=== PATIENT | female | born 1995 | race American Indian/Alaskan Native ===

== ENCOUNTER 2018-08-09 17:43 | Emergency (ER) | payer OTHER ==
[2018-08-09] MEDS ORDERED: MOTRIN PO ONE (17:54)
[2018-08-09] MEDS ORDERED: DECADRON IM ONE (17:54)
[2018-08-09] MEDS ORDERED: DECADRON ONE (17:58)
--- NOTE | 2018-08-09 18:06 | Event Note ---
ED Screening Note Date of service: 08/09/18 Time: 17:52 ED Screening Note: 23 y/o female comes in for sore throat times 2 days. Diff swallowing. This initial assessment/diagnostic orders/clinical plan/treatment(s) is/are subject to change based on patients health status, clinical progression and re- assessment by fellow clinical providers in the ED. Further treatment and workup at subsequent clinical providers discretion. Patient/guardian urged not to elope from the ED as their condition may be serious if not clinically assessed and managed. Initial orders include:
[2018-08-09] MEDS ORDERED: BICILLIN L-A IM STA (20:39)
--- NOTE | 2018-08-09 20:48 | Emergency Department Report ---
ED ENT HPI - General Chief complaint: Sore Throat Stated complaint: THROAT SWOLLEN Time Seen by Provider: 08/09/18 20:30 Source: patient Mode of arrival: Ambulatory Limitations: No Limitations - History of Present Illness MD complaint: sore throat -: Gradual, days(s) (3) Location: throat Severity: moderate Quality: dull, constant Consistency: constant Improves with: none Worsens with: none Associated Symptoms: sore throat - Related Data Previous Rx's Medication Instructions Recorded Last Taken Type Lidocaine Viscous 2% 5 ml MM Q3H PRN #120 ud 08/09/18 Unknown Rx Allergies Allergy/AdvReac Type Severity Reaction Status Date / Time shellfish derived Allergy Hives Verified 08/09/18 17:45 ED Dental HPI - General Chief complaint: Sore Throat Stated complaint: THROAT SWOLLEN Time Seen by Provider: 08/09/18 20:30 Source: patient Mode of arrival: Ambulatory Limitations: No Limitations - Related Data Previous Rx's Medication Instructions Recorded Last Taken Type Lidocaine Viscous 2% 5 ml MM Q3H PRN #120 ud 08/09/18 Unknown Rx Allergies Allergy/AdvReac Type Severity Reaction Status Date / Time shellfish derived Allergy Hives Verified 08/09/18 17:45 ED Review of Systems ROS: Stated complaint: THROAT SWOLLEN Other details as noted in HPI Constitutional: denies: chills, fever Eyes: denies: eye pain, eye discharge, vision change ENT: throat pain. denies: ear pain Respiratory: denies: cough, shortness of breath, wheezing Cardiovascular: denies: chest pain, palpitations Endocrine: no symptoms reported Gastrointestinal: denies: abdominal pain, nausea, diarrhea Genitourinary: denies: urgency, dysuria, discharge Musculoskeletal: denies: back pain, joint swelling, arthralgia Skin: denies: rash, lesions Neurological: denies: headache, weakness, paresthesias Psychiatric: denies: anxiety, depression Hematological/Lymphatic: denies: easy bleeding, easy bruising ED Past Medical Hx - Past Medical History Previous Medical History?: No - Surgical History Additional Surgical History: FINGER - Social History Smoking Status: Never Smoker Substance Use Type: Alcohol - Medications Home Medications: Home Medications Medication Instructions Recorded Confirmed Last Taken Type Lidocaine Viscous 2% 5 ml MM Q3H PRN #120 udc 08/09/18 Unknown Rx ED Physical Exam - General Limitations: No Limitations General appearance: alert, in no apparent distress - Head Head exam: Present: atraumatic, normocephalic - Eye Eye exam: Present: normal appearance, PERRL, EOMI Pupils: Present: normal accommodation - ENT ENT exam: Present: mucous membranes moist, other (pharyngeal erythema with some edema. No exudate. Airway is still patent.) - Neck Neck exam: Present: normal inspection, full ROM, lymphadenopathy. Absent: tende rness - Respiratory Respiratory exam: Present: normal lung sounds bilaterally. Absent: respiratory distress, rales, rhonchi, chest wall tenderness, accessory muscle use, decreased breath sounds - Cardiovascular Cardiovascular Exam: Present: regular rate, normal rhythm. Absent: systolic murmur, diastolic murmur, rubs, gallop - GI/Abdominal GI/Abdominal exam: Present: soft, normal bowel sounds. Absent: tenderness, guarding, hyperactive bowel sounds, mass, bruit - Extremities Exam Extremities exam: Present: normal inspection, full ROM, normal capillary refill - Back Exam Back exam: Present: normal inspection, full ROM. Absent: CVA tenderness (R), CVA tenderness (L) - Neurological Exam Neurological exam: Present: alert, oriented X3, CN II-XII intact - Psychiatric Psychiatric exam: Present: normal affect, normal mood - Skin Skin exam: Present: warm, dry, intact, normal color. Absent: rash ED Course Vital Signs 08/09/18 08/09/18 17:51 18:16 Temperature 99.3 F Pulse Rate 82 Respiratory 18 18 Rate Blood Pressure 123/69 O2 Sat by Pulse 97 Oximetry ED Medical Decision Making - Medical Decision Making 23-year-old female with sore throat and fever sensation. [facility] IM emergency department for tolerates oral no complications Critical care attestation.: If time is entered above; I have spent that time in minutes in the direct care of this critically ill patient, excluding procedure time. ED Disposition Clinical Impression: Pharyngitis Disposition: DC-01 TO HOME OR SELFCARE Is pt being admited?: No Does the pt Need Aspirin: No Condition: Stable Instructions: Pharyngitis (ED) Referrals: CHIDI RODRÍGUEZ MD [Primary Care Provider] - 3-5 Days
[2018-08-09] MEDS ORDERED: LIDOCAINE VISCOUS 2% ONE (20:50)
[2018-08-09] MEDS ORDERED: LIDOCAINE VISCOUS 2% PO ONE (20:50)
[2018-08-09 21:31] VITALS: BP 122/68
== END 2018-08-09 21:31 | disposition home or self-care (01) ==
LOC: ED 17:43
DX: J02.9 Acute pharyngitis, unspecified (principal); Z79.899 Other long term (current) drug therapy; Z91.013 Allergy to seafood
CPT/HCPCS: 87116; 87430; 96372; 99283; J0561; J1100

== ENCOUNTER 2018-10-26 17:41 | Emergency (ER) | payer OTHER ==
[2018-10-26] MEDS ORDERED: TORADOL IM ONE (19:46)
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
[2018-10-26 20:51] VITALS: BP 113/90
== END 2018-10-26 20:50 | disposition home or self-care (01) ==
LOC: ED 17:41
DX: S16.1XXA Strain of muscle, fascia and tendon at neck level, initial encounter (principal); Z79.899 Other long term (current) drug therapy; Z91.013 Allergy to seafood; V49.49XA Driver injured in collision with other motor vehicles in traffic accident, initial encounter; Y93.89 Activity, other specified; Y92.410 Unspecified street and highway as the place of occurrence of the external cause; Y99.8 Other external cause status
CPT/HCPCS: 96372; 99282; J1885